=== PATIENT | female | born 1955 | race Caucasian/White ===

== ENCOUNTER 2017-09-21 07:18 | Emergency (ER) | payer BC, OTHER ==
[~2017-09-21] VITALS: Ht 156.2 cm; Wt 147.9 kg
[2017-09-21 08:17] LABS: HEMOGLOBIN 12.3 G/DL (11.9-15.5); MCH 26.8 PG (29.0-34.0); MCHC 33.2 G/DL (30.0-36.0); MCV 80.6 FL (83-99); PLATELET COUNT 176 K/uL (156-360); RBC DIS.WIDTH-CV 13.4 % (11.8-14.6); RBC DIS.WIDTH-SD 39.3 % (39-53); RED BLOOD COUNT 4.59 M/uL (3.80-5.20)
[2017-09-21 08:49] LABS: TROP-I INTERPRETATION NEGATIVE; TROPONIN-I < 0.01 ng/mL (0.0-0.30)
[2017-09-21 08:51] LABS: ALBUMIN 3.5 g/dL (3.2-4.8); CHLORIDE 105 mEq/L (99-109); POTASSIUM 3.7 mEq/L (3.7-5.4); SODIUM 137 mEq/L (136-147)
[2017-09-21 08:53] LABS: GLUCOSE 261 mg/dL (70-99)
[2017-09-21 08:55] LABS: TOTAL BILIRUBIN 0.5 mg/dL (0.0-1.0)
[2017-09-21 08:57] LABS: ALKALINE PHOSPHATASE 58 IU/L (3-129); CREATININE 0.7 mg/dL (0.6-1.3); GFR ESTIMATE (CALCULATED) > 59 mL/min/
[2017-09-21 08:58] LABS: UREA NITROGEN (BUN) 22 mg/dL (9-23)
[2017-09-21 08:59] LABS: AST (GOT) 22 IU/L (2-34)
[2017-09-21 09:00] LABS: ALT (GPT) 27 IU/L (3-49); LIPASE 16 U/L (1.0-51.0)
[2017-09-21 09:49] LABS: APPEARANCE CLEAR ((CLEAR)); BILIRUBIN NEGATIVE; BLOOD NEGATIVE; COLOR STRAW ((YELLOW)); GLUCOSE (STRIP) >=500; KETONES 20; LEUKOCYTES NEGATIVE; NITRITE NEGATIVE; PROTEIN (STRIP) NEGATIVE; SPECIFIC GRAVITY 1.013 (1.000-1.030); UROBILINOGEN 0.2 MG/DL (0.2-1.0)
[2017-09-21] MEDS ORDERED: ZOFRAN ODT4 MG PO (11:10)
[2017-09-21 11:35] VITALS: BP 162/78
== END 2017-09-21 11:37 | disposition home or self-care (01) ==
LOC: EME 07:18
PROVIDERS: Nurse Practitioner Family
DX: E11.65 Type 2 diabetes mellitus with hyperglycemia (principal); R06.02 Shortness of breath; R51 Headache; Z79.4 Long term (current) use of insulin; Z86.711 Personal history of pulmonary embolism; Z79.82 Long term (current) use of aspirin; K21.9 Gastro-esophageal reflux disease without esophagitis; Z86.73 Personal history of transient ischemic attack (TIA), and cerebral infarction without residual deficits; G47.30 Sleep apnea, unspecified; E66.01 Morbid (severe) obesity due to excess calories; Z68.44 Body mass index [BMI] 60.0-69.9, adult
CPT/HCPCS: 71046; 80053; 81003; 83605; 83690; 84484; 85027; 93005; 99281; 99284; J1885; J2405; J7030